=== PATIENT | female | born 1980 | race Caucasian/White ===

== ENCOUNTER 2021-01-21 13:30 | Emergency (ER) | payer BC ==
[~2021-01-21] VITALS: Ht 160 cm; Wt 87.1 kg
[2021-01-21 13:46] VITALS: Ht 160 cm; Wt 87.1 kg
[2021-01-21 14:12] LABS: BASOPHIL % 1.4 % (0.2-1.3); PLATELET COUNT 231 x10^3mcL (179-408)
[2021-01-21 14:14] LABS: RED CELL DISTRIBUTION WIDTH 16.6 % (12.3-17.7)
[2021-01-21 14:17] LABS: CALCIUM 8.9 mg/dL (8.5-10.1); CARBON DIOXIDE 23.7 mmol/L (21-32); CHLORIDE SERUM 105 mmol/L (98-107); CREATININE SERUM 0.7 mg/dL (0.6-1.0); GFR1 > 60 mL/min; GLUCOSE SERUM 107 mg/dL (74-106); SODIUM SERUM 140 mmol/L (136-145)
[2021-01-21 14:22] LABS: ALBUMIN 3.6 g/dL (3.4-5.0); ALKALINE PHOSPHATASE 107 U/L (46-116); ALT/SGPT 18 U/L (14-59); AST/SGOT 16 U/L (15-37); TOTAL PROTEIN, SERUM 7.3 g/dL (6.4-8.2)
[2021-01-21 14:31] LABS: rbc morphology (normal/abnorm) NORMAL (NORMAL)
[2021-01-21 14:38] LABS: BILIRUBIN TOTAL 0.1 mg/dL (0.20-1.00)
[2021-01-21] MEDS ORDERED: NAPROXEN375 MG PO (16:56)
[2021-01-21 18:35] VITALS: BP 130/80
== END 2021-01-21 18:35 | disposition short-term general hospital (02) ==
LOC: ED 13:30
PROVIDERS: Emergency Medicine
DX: F41.9 Anxiety disorder, unspecified (principal); R07.89 Other chest pain; F17.210 Nicotine dependence, cigarettes, uncomplicated; Z71.6 Tobacco abuse counseling
CPT/HCPCS: 99406; J1885; J2060; J3010